=== PATIENT | male | born 1975 | race Caucasian/White ===

== ENCOUNTER 2017-07-02 08:44 | Emergency (ER) | payer MEDICARE ==
[2017-07-02 08:51] VITALS: TEMP 99.9; O2SAT 100; BMI 25.8
[2017-07-02] MEDS ORDERED: Oxycodone/Acetaminophen 5/325 mg Tab PO ONE (09:36)
[2017-07-02] MEDS ORDERED: Oxycodone/Acetaminophen 5/325 mg Tab ONE (09:52)
--- NOTE | 2017-07-02 10:11 | ED PDOC ---
Upper Extremity Pain/Injury Time Seen by Provider: 07/02/17 09:05 Chief Complaint (Nursing): Shortness Of Breath Chief Complaint (Provider): right neck and shoulder pain History Per: Patient History/Exam Limitations: no limitations Onset/Duration Of Symptoms: Days Current Symptoms Are (Timing): Still Present Additional History Per: Patient Additional Complaint(s): 41yo male, with no known past medical history, presents to the ED for evaluation of right sided neck pain as well as right sided shoulder pain, which started last night. Patient states he used a lidocaine patch as well as Motrin for his pain with no relief. Patient denies any numbness, tingling, trauma or injury. Contrary to triage, patient denies any shortness of breath, chest discomfort. Past Medical History Reviewed: Historical Data, Nursing Documentation, Vital Signs Vital Signs: Last Vital Signs Temp 99.9 F H 07/02/17 08:50 Pulse 100 H 07/02/17 08:50 Resp 16 07/02/17 08:50 BP 137/95 H 07/02/17 08:50 Pulse Ox 100 07/02/17 08:50 - Medical History PMH: Anxiety, Depression, GERD Denies: HIV, Chronic Kidney Disease - Surgical History Surgical History: Cholecystectomy - Family History Family History: States: No Known Family Hx - Social History Current smoker - smoking cessation education provided: No Ex-Smoker (has not smoked in the last 12 months): No Alcohol: None Drugs: Denies - Home Medications Home Medications: Ambulatory Orders Medication Instructions Recorded Albuterol Sulfate [Proair Hfa] 2 puff IH Q6H PRN #0 inh 08/17/15 Peg-400/Propylene Glycol [Systane 1 drop EACHEYE QID #0 kya 08/17/15 0.4%-0.3% 15 ml] clonazePAM [Klonopin] 1 mg PO BID PRN #0 tab 08/17/15 Ibuprofen [Motrin] 600 mg PO Q6H PRN #20 tab 07/02/17 - Allergies Allergies/Adverse Reactions: Allergies Allergy/AdvReac Type Severity Reaction Status Date / Time No Known Allergies Allergy Verified 08/09/15 18:55 Review of Systems ROS Statement: Except As Marked, All Systems Reviewed And Found Negative Musculoskeletal: Positive for: Neck Pain (right sided), Shoulder Pain (right) Physical Exam - Reviewed Nursing Documentation Reviewed: Yes Vital Signs Reviewed: Yes - Physical Exam Appears: Positive for: Non-toxic Head Exam: Positive for: ATRAUMATIC, NORMAL INSPECTION, NORMOCEPHALIC Skin: Positive for: Warm, Dry Eye Exam: Positive for: Normal appearance Neck: Positive for: Normal, Supple Cardiovascular/Chest: Positive for: Regular Rate, Rhythm Respiratory: Positive for: Normal Breath Sounds. Negative for: Respiratory Distress Extremity: Positive for: Normal ROM (FROM at right shouder; mild pain with elevation of right arm), Capillary Refill (< 2 seconds). Negative for: Deformity, Swelling Neurologic/Psych: Positive for: Alert, Oriented. Negative for: Motor/Sensory Deficits - ECG ECG: Positive for: Interpreted By Me, Viewed By Me ECG Rhythm: Positive for: Normal QRS, Normal ST Segment, Sinus Rhythm Rate: 94 O2 Sat by Pulse Oximetry: 100 (RA) Pulse Ox Interpretation: Normal Medical Decision Making Medical Decision Making: Time: 934 Impression: Right neck pain, right shoulder pain rule out fracture Plan: -- XR Right shoulder -- Percocet 1 Tab PO Reassess Time: 1233 XR as read by provider shows no fracture or dislocations. patient informed of results; also informed that a rotator cuff injury cannot be excluded. patient informed to follow up with orthopedist and also get an MRI evaluation as an outpatient. Patient reports complete improvement of his pain. Stable for discharge home. Scribe Attestation: Documented by Thalia Santacruz acting as a scribe for Alvina Rivers MD. Provider Attestation: All medical record entries made by the Scribe were at my direction and personally dictated by me. I have reviewed the chart and agree that the record accurately reflects my personal performance of the history, physical exam, medical decision making, and the department course for this patient. I have also personally directed, reviewed, and agree with the discharge instructions and disposition. Disposition - Clinical Impression Clinical Impression: Shoulder pain - Patient ED Disposition Is Patient to be Admitted: No Counseled Patient/Family Regarding: Studies Performed, Diagnosis, Need For Followup - Disposition Referrals: [facility] [Outside] Josue Correa III, MD [Staff Provider] - Disposition: Routine/Home Disposition Time: 10:00 Condition: IMPROVED Additional Instructions: follow up with orthopedist this week return to the ED with any worsening or concerning symptoms Prescriptions: Ibuprofen [Motrin] 600 mg PO Q6H PRN #20 tab PRN Reason: Pain, Moderate (4-7) Instructions: Shoulder Pain (ED) Forms: [facility] (Macedonian)
[2017-07-02 12:56] VITALS: BP 130/89; RESP 18
--- NOTE | 2017-07-02 14:06 | RAD ---
PROCEDURE: Radiographs of the Right Shoulder HISTORY: shoulder pain for one day COMPARISON: No prior. FINDINGS: BONES: Normal. No fracture. JOINTS: Normal. Glenohumeral and acromioclavicular joints preserved. No osteoarthritis. SOFT TISSUES: Normal. OTHER FINDINGS: None. IMPRESSION: Normal radiographs of the right shoulder.
--- NOTE | 2017-07-03 07:35 | CARD ---
APPROVED REPORT EKG Measurement Heart [id number] CO 134P55 [id number] <Conclusion> Normal sinus rhythm Normal ECG
[2017-07-03 08:07] VITALS: PULSE 94
== END 2017-07-02 12:50 | disposition home or self-care (01) ==
LOC: H.ER 08:44
DX: M25.511 Pain in right shoulder (principal); F32.9 Major depressive disorder, single episode, unspecified; F41.9 Anxiety disorder, unspecified; K21.9 Gastro-esophageal reflux disease without esophagitis
CPT/HCPCS: 73030; 93005; 96372; 99283; J1885

== ENCOUNTER 2017-10-25 21:28 | Emergency (ER) | payer MEDICARE ==
[2017-10-25 21:29] VITALS: BMI 25.8
[2017-10-25 21:41] VITALS: BP 124/86; RESP 20; TEMP 99.3; O2SAT 98
[2017-10-25 22:25] LABS: BASO # 0.1 K/uL (0.0-0.2); BASO % 0.9 % (0.0-2.0); EOS # 0.2 K/uL (0.0-0.7); EOS % 1.6 % (0.0-4.0); LYMPH # 4.2 K/uL (1.0-4.3); LYMPH % 38.9 % (20.0-40.0); MEAN CORPUSCULAR HEMOGLOBIN 30.6 pg (27.0-31.0); MEAN PLATELET VOLUME 7.5 fl (7.2-11.7); MONO # 0.6 K/uL (0.0-0.8); MONO % 5.9 % (0.0-10.0); NEUT # 5.7 K/uL (1.8-7.0); NEUT % 52.7 % (50.0-75.0); NRBC % 0.1 % (0.0-0.0); RBC 4.9 Mil/uL (4.40-5.90); RED CELL DISTRIBUTION WIDTH 13.4 % (11.5-14.5); WHITE BLOOD COUNT 10.9 K/uL (4.8-10.8)
[2017-10-25 22:33] LABS: ALB/GLOB RATIO 1.5 (1.0-2.1); ALBUMIN 4.3 g/dL (3.5-5.0); ALT/SGPT 60 U/L (21-72); AST/SGOT 45 U/L (17-59); BLOOD UREA NITROGEN 16 mg/dl (9-20); GFR AFRICAN-AMERICAN > 60; GFR NON-AFRICAN AMERICAN > 60
--- NOTE | 2017-10-25 22:37 | ED PDOC ---
HPI: SOB/CHF/COPD Time Seen by Provider: 10/25/17 21:54 Chief Complaint (Nursing): Shortness Of Breath Chief Complaint (Provider): shortness of breath History Per: Patient History/Exam Limitations: no limitations Onset/Duration Of Symptoms: Days (4) Current Symptoms Are (Timing): Intermittent Episodes Quality: Tightness Current Respiratory Medications: Other (klonopin) Severity: Mild Associated Symptoms: Heart Racing, Anxiety. denies: Bloody Cough, Productive Cough, Leg/Calf Pain, Ankle/Leg Swelling, Dizziness, Light-headedness Additional Complaint(s): 42yo male c/o shortness of breath he describes as tightness, associated w left sided chest tightness and anxiety. States taking klonopin, last dose yesterday 1 pill daily. Also quit smoking in september. Denies cough, hemoptysis, fever, syncope or weakness. Admits to sleeping poorly and restlessness, denies feelings of depression or suicidal thoughts. Past Medical History Reviewed: Historical Data, Nursing Documentation, Vital Signs Vital Signs: Last Vital Signs Temp 99.3 F 10/25/17 21:35 Pulse 112 H 10/25/17 22:40 Resp 20 10/25/17 21:35 BP 124/86 10/25/17 21:35 Pulse Ox 98 10/25/17 22:40 - Medical History PMH: Anxiety, Depression, GERD - Surgical History Surgical History: Cholecystectomy - Family History Family History: States: Unknown Family Hx - Social History Ex-Smoker (has not smoked in the last 12 months): Yes (quit last month) Alcohol: Other (quit last year) - Immunization History Hx Tetanus Toxoid Vaccination: No Hx Influenza Vaccination: No Hx Pneumococcal Vaccination: No - Home Medications Home Medications: Ambulatory Orders Medication Instructions Recorded Cyclobenzaprine [Cyclobenzaprine 10 mg PO Q8 #9 tab 07/04/17 HCl] clonazePAM [Klonopin] 1 mg PO DAILY 07/04/17 - Allergies Allergies/Adverse Reactions: Allergies Allergy/AdvReac Type Severity Reaction Status Date / Time No Known Allergies Allergy Verified 08/09/15 18:55 Review of Systems ROS Statement: Except As Marked, All Systems Reviewed And Found Negative Constitutional: Negative for: Fever, Chills Eyes: Negative for: Conjunctivae Inflammation ENT: Negative for: Throat Pain, Throat Swelling Cardiovascular: Positive for: Chest Pain, Palpitations Respiratory: Positive for: Shortness of Breath, Pleuritic Pain. Negative for: Cough, Hemoptysis, Sputum, Wheezing Gastrointestinal: Negative for: Nausea, Abdominal Pain Musculoskeletal: Negative for: Shoulder Pain, Leg Pain Skin: Negative for: Rash, Lesions, Jaundice Neurological: Positive for: Headache, Dizziness. Negative for: Weakness Psych: Positive for: Anxiety. Negative for: Depression, Psychosis Physical Exam - Reviewed Nursing Documentation Reviewed: Yes Vital Signs Reviewed: Yes - Physical Exam Appears: Positive for: Well, Non-toxic, No Acute Distress Head Exam: Positive for: ATRAUMATIC, NORMAL INSPECTION, NORMOCEPHALIC Skin: Positive for: Normal Color, Warm, DRY Eye Exam: Positive for: EOMI, Normal appearance, PERRL ENT: Positive for: Normal ENT Inspection Neck: Positive for: Normal, Painless ROM Cardiovascular/Chest: Positive for: Tachycardia. Negative for: Irregularly Irregular Respiratory: Positive for: CNT, Normal Breath Sounds Pulses-Radial (L): 2+ Pulses-Radial (R): 2+ Gastrointestinal/Abdominal: Positive for: Bowel Sounds, Soft. Negative for: Tenderness Back: Positive for: Normal Inspection Extremity: Positive for: Normal ROM. Negative for: Tenderness, Deformity, Swelling Neurologic/Psych: Positive for: Alert, Oriented. Negative for: Motor/Sensory Deficits - Laboratory Results Result Diagrams: 10/25/17 22:15 10/25/17 22:15 - ECG ECG: Positive for: Interpreted By Me ECG Rhythm: Positive for: Sinus Tachycardia, Nonspecific Changes Rate: 112 O2 Sat by Pulse Oximetry: 98 Pulse Ox Interpretation: Normal - Radiology X-Ray: Interpreted by Ia X-Ray Interpretation: No Acute Disease Medical Decision Making Medical Decision Making: labs reviewed DDimer neg trop neg BNP normal Utox +cocaine +benzo +THC 1210a remains mildly tachycardic. Additional dose ativan given endorse Dr Mercado Disposition - Clinical Impression Clinical Impression: Cocaine abuse, Palpitations - Patient ED Disposition Is Patient to be Admitted: Transfer of Care - Disposition Disposition: Transfer of Care Disposition Time: 12:10 Condition: FAIR Forms: [facility] (Japanese) Patient Signed Over To: Bulmaro Mercado Handoff Comments: pending re-eval and repeat trop
[2017-10-25 22:45] LABS: B-TYPE NATRIURETIC PEPTIDE 35.8 pg/ml (0-450)
[2017-10-25 23:05] LABS: BARBITURATES, UR NEGATIVE (NEGATIVE); BENZODIAZEPINES, UR POSITIVE (NEGATIVE); OPIATES, UR NEGATIVE (NEGATIVE); PHENCYCLIDINE, UR NEGATIVE (NEGATIVE)
--- NOTE | 2017-10-26 02:53 | ED PDOC ---
- Laboratory Results Result Diagrams: 10/25/17 22:15 10/25/17 22:15 - ECG O2 Sat by Pulse Oximetry: 98 Medical Decision Making Medical Decision Makin Patient signed out to me from Dr. Cannon pending ED work up. 0400 Upon re-evaluation, patient is feeling much better. Heart rate has decreased and patient notes that palpitations have resolved. Labs reviewed: troponin negative Advised patient to abstain from cocaine abuse. Return precautions given. Patient will follow up with PCP and substance abuse program in 1-2 days. Patient is stable for discharge home. Scribe Attestation: Documented by Carol Bustamante acting as a scribe for Bulmaro Mercado MD. Scribe Attestation: All medical record entries made by the Scribe were at my direction and personally dictated by me. I have reviewed the chart and agree that the record accurately reflects my personal performance of the history, physical exam, medical decision making, and the department course for this patient. I have also personally directed, reviewed, and agree with the discharge instructions and disposition. Disposition - Clinical Impression Clinical Impression: Cocaine abuse, Palpitations - POA Present On Arrival: None - Disposition Referrals: [facility] [Family Provider] - Disposition: Routine/Home Disposition Time: 04:00 Condition: STABLE Instructions: Palpitations, Cocaine Use Disorder Forms: [facility] (Grenadian)
[2017-10-26 02:54] VITALS: PULSE 90
--- NOTE | 2017-10-26 08:53 | RAD ---
HISTORY: chest pain/ r/o infiltrate COMPARISON: Chest radiograph dated 08/02/2015. TECHNIQUE: Chest PA and lateral FINDINGS: LUNGS: No active pulmonary disease. PLEURA: No significant pleural effusion identified. No pneumothorax apparent. CARDIOVASCULAR: Normal. OSSEOUS STRUCTURES: No significant abnormalities. VISUALIZED UPPER ABDOMEN: Right upper quadrant surgical clips redemonstrated. OTHER FINDINGS: None. IMPRESSION: No active disease.
--- NOTE | 2017-10-26 19:06 | CARD ---
APPROVED REPORT EKG Measurement Heart [id number] MT 130P51 [id number] <Conclusion> Sinus tachycardia Rightward axis Borderline ECG
== END 2017-10-26 04:15 | disposition home or self-care (01) ==
LOC: H.ER 21:28
DX: F14.10 Cocaine abuse, uncomplicated (principal); R00.2 Palpitations; K21.9 Gastro-esophageal reflux disease without esophagitis; F32.9 Major depressive disorder, single episode, unspecified; F41.9 Anxiety disorder, unspecified
CPT/HCPCS: 71046; 80053; 83880; 84484; 85025; 85378; 93005; 96374; 99283; G0480; J2060

== ENCOUNTER 2018-12-23 05:23 | Emergency (ER) | payer MEDICARE ==
[2018-12-23 05:23] VITALS: BMI 25.8
[2018-12-23] MEDS ORDERED: Bacitracin 500 Units/gm Oint Foilpak UD ONE (05:36)
[2018-12-23] MEDS ORDERED: Tdap Vaccine 0.5 ml Vial (10-64 yrs) IM ONE ×2 (06:05→06:29)
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
[2018-12-23 07:36] VITALS: BP 122/77; PULSE 62; RESP 18; TEMP 98.2; O2SAT 100
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
== END 2018-12-23 07:22 ==
LOC: H.ER 05:23
DX: S20.412A Abrasion of left back wall of thorax, initial encounter (principal); S69.92XA Unspecified injury of left wrist, hand and finger(s), initial encounter; F17.200 Nicotine dependence, unspecified, uncomplicated; Z86.59 Personal history of other mental and behavioral disorders